=== PATIENT | male | born 1950 | race Caucasian/White ===

== ENCOUNTER 2017-03-16 08:01 | Day surgery (SDC) | payer MEDICARE ==
[~2017-03-16 08:01] MED LIST: ACETAMINOPHEN 1,000 MG/100 ML BTL IV ONE; CEFAZOLIN 2 Gram 2 GM/50 ML BAG IVPB ONE; FAMOTIDINE 20MG TABLET PO ONE; MECLIZINE 25 MG TABLET PO ONE; METOCLOPRAMIDE 10 MG TABLET PO ONE
[2017-03-16] MEDS ORDERED: NALOXONE 0.4 MG/1 ML VIAL IVP ONE (08:02)
[2017-03-16] MEDS ORDERED: METOCLOPRAMIDE HCL 10 MG/2 ML VIAL IVP ONE (08:02)
[2017-03-16] MEDS ORDERED: DEXAMETHASONE 4 MG/ML 1ML VIAL IVP ONE (08:02)
[2017-03-16] MEDS ORDERED: FENTANYL PF 100MCG/2ML VIAL IV ONE (08:02)
[2017-03-16] MEDS ORDERED: HYDROCODONE/APAP 5/325MG TABLET PO ONE (08:02)
[2017-03-16] MEDS ORDERED: HYDROMORPHONE HCL 2 MG/ML VIAL IV ONE (08:02)
[2017-03-16] MEDS ORDERED: NEOSTIGMINE 1 MG/1 ML,10ML VIAL IV ONE (08:02)
[2017-03-16] MEDS ORDERED: MIDAZOLAM HCL 2MG/2ML VIAL IV ONE (08:02)
[2017-03-16] MEDS ORDERED: BUPIVACAINE 0.75% W/EPI MPF 30ML VIAL IVP ONE (08:02)
[2017-03-16] MEDS ORDERED: GLYCOPYRROLATE 0.2 MG/ML ML IV ONE (08:02)
[2017-03-16] MEDS ORDERED: LIDOCAINE 2% MDV (20MG/ML) 20ML VIAL IV ONE (08:02)
[2017-03-16] MEDS ORDERED: ROCURONIUM BROMIDE 50MG/5ML VIAL IV ONE (08:02)
[2017-03-16] MEDS ORDERED: SUCCINYLCHOLINE 20 MG/ML 10ML IVP ONE (08:02)
[2017-03-16] MEDS ORDERED: DESFLURANE 240 ML BTL INH ONE (08:02)
[2017-03-16] MEDS ORDERED: PROPOFOL 10 MG/ML VIAL IV ONE (08:02)
[2017-03-16] MEDS ORDERED: ONDANSETRON HCL IV 4 MG/2 ML VIAL IVP ONE (08:02)
[2017-03-16] MEDS ORDERED: ROPIVACAINE HCL (NAROPIN) /PF 5MG/ML 20ML VIAL IV ONE (08:02)
[2017-03-16 08:11] LABS: BASO % 1.1 % (0-6); EOS % 2.1 % (0-6); GRAN % 64.4 % (47-80); HEMATOCRIT 46.3 % (42.0-52.0); HEMOGLOBIN 15.2 gm/dl (14.0-18.0); LYMPH % 21.3 % (16-45); MEAN CELL VOLUME 90.3 fl (81-97); MEAN CORPUSCULAR HEMOGLOBIN 29.6 pg (27-33); MEAN CORPUSCULAR HGB CONC 32.8 g/dl (32-36); MEAN PLATELET VOLUME 9.3 fl (7.4-10.4); MONO % 11.1 % (0-9); PLATELET COUNT 261 K/uL (130-400); RED BLOOD COUNT 5.13 M/uL (4.40-5.70); RED CELL DISTRIBUTION WIDTH 13.3 % (11.5-14.5); WHITE BLOOD COUNT W/O DIFF 7.1 K/uL (4.2-12.2)
--- NOTE | 2017-03-18 12:50 | Operative Note ---
DATE OF SURGERY: 03/16/2017 Surgeon: Chadwick Mae DO PREOPERATIVE DIAGNOSIS: Right inguinal hernia, direct. POSTOPERATIVE DIAGNOSIS: Right inguinal hernia, direct. OPERATION: Laparoscopic right inguinal herniorrhaphy with mesh using an XL 3D Max mesh. Indication: The patient is a 58-year-old male who presented to the clinic with pain and bulging in his right inguinal region. He did have a fairly sizable hernia on exam. We did discuss repair; risks, benefits, and alternatives. His risks include but are not limited to bleeding, infection, acute or chronic pain, recurrence. He understood this fully. Thereafter, consent was signed, questions answered. PROCEDURE: He was taken to the operating room and placed in a supine position. General anesthesia was administered per the department of anesthesia. The patient's arm was tucked to the side. His abdomen was prepped and draped in a sterile fashion. At this time, adequate timeout was performed. He did receive preoperative antibiotics as well as DVT prophylaxis. At this time, the supraumbilical region was anesthetized with a total of 4 mL of 0.25% Sensorcaine with epinephrine. A 2 cm supraumbilical incision was made. This was carried down to the anterior rectus fascia. This was incised. Blair clamps placed on the fascial edges and brought up into the wound. Stay sutures of 0 Vicryl were placed. The posterior rectus sheath was identified and incised. The peritoneal cavity was entered bluntly. At this time, a 10 mm blunt Will port was placed and adequate pneumoperitoneum was established. Adequate pneumoperitoneum was established. Under direct visualization, additional 5 mm ports were placed on either side of these at the mid clavicular line. The patient was rotated into a steep Trendelenburg position. A 30-degree angled lens was placed. After general exam was done, there was a very large indirect inguinal hernia on the right. Left side appeared normal. At this time, the peritoneum was scored in S-shaped fashion starting on the ASIS to the medial umbilical ligament. A large inferior flap was developed as the loose inguinal tissue was swept away. Care was taken not to injure the vas deferens or other vessels. A large direct hernia sac was then reduced. Symphysis pubis and Yandel's ligament were exposed medially. At this time, an extra large 3D Max mesh was obtained. This was placed carefully in the myopectineal orifice. We had excellent overlap of the direct hernia. Tacks on the back of the rectus on either side of the epigastric vessels and up and above the triangle of pain. Two tacks also went to the level of Yandel's ligament. At this time, the site was reperitonealized with tacking device. The mesh was covered completely. There were no gaps noted. The patient was leveled out. Pneumoperitoneum was released. All ports removed. The fascia was closed with 0 Vicryl in a [id number] fashion. Skin at all 3 ports closed 0 Vicryl. The patient was taken to the recovery room in satisfactory condition. FINDINGS ON SURGERY: Right inguinal hernia, direct, repaired as above. CC: KENNETH Lei
== END 2017-03-16 12:05 | disposition home or self-care (01) ==
LOC: SUR 08:01
PROVIDERS: ATTEND Surgery
DX: K40.90 Unilateral inguinal hernia, without obstruction or gangrene, not specified as recurrent (principal); I10 Essential (primary) hypertension; E78.00 Pure hypercholesterolemia, unspecified; E11.9 Type 2 diabetes mellitus without complications; Z79.84 Long term (current) use of oral hypoglycemic drugs
CPT/HCPCS: 85025; C1781; J0330; J2310; J2405; J2710; J2765; J3490

== ENCOUNTER 2018-03-25 07:13 | Day surgery (SDC) | payer MEDICARE ==
[~2018-03-25 07:13] MED LIST changes: -CEFAZOLIN 2 Gram 2 GM/50 ML BAG IVPB ONE; -FAMOTIDINE 20MG TABLET PO ONE; -MECLIZINE 25 MG TABLET PO ONE; -METOCLOPRAMIDE 10 MG TABLET PO ONE
[2018-03-25] MEDS ORDERED: SEVOFLURANE 250 ML INH ONE (07:14)
[2018-03-25] MEDS ORDERED: DEXAMETHASONE 4 MG/ML 1ML VIAL IVP ONE ×2 (07:14)
[2018-03-25] MEDS ORDERED: PROPOFOL 10 MG/ML VIAL IV ONE (07:14)
[2018-03-25] MEDS ORDERED: EPHEDRINE SULFATE 50 MG/ML ML IV ONE (07:14)
[2018-03-25] MEDS ORDERED: MIDAZOLAM HCL 2MG/2ML VIAL IV ONE (07:14)
[2018-03-25] MEDS ORDERED: PHENYLEPHRINE HCL 10 MG/ML VIAL IVP ONE (07:14)
[2018-03-25] MEDS ORDERED: BUPIVACAINE 0.5% W/EPI MPF 30 ML VIAL IVP ONE (07:14)
[2018-03-25] MEDS ORDERED: ONDANSETRON HCL IV 4 MG/2 ML VIAL IVP ONE (07:14)
[2018-03-25] MEDS ORDERED: LIDOCAINE 2% MDV (20MG/ML) 20ML VIAL IV ONE (07:14)
[2018-03-25] MEDS ORDERED: BUPIVACAINE LIPOSOME/PF 133MG/10ML VIAL IV ONE (07:14)
[2018-03-25] MEDS ORDERED: EPINEPHRINE 1 MG/ML AMPUL SQ ONE (07:14)
--- NOTE | 2018-03-26 11:00 | Operative Note ---
DATE OF SURGERY: 03/25/2018 Surgeon: Mark Ngo DO PREOPERATIVE DIAGNOSES: 1. Tear of the right rotator cuff. 2. Impingement syndrome, right shoulder. 3. Tearing and dislocation, medial dislocation of the biceps tendon. 4. 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 OPERATION: 1. Arthroscopic repair, right rotator cuff. 2. Arthroscopic subacromial decompression and acromioplasty, right shoulder. 3. Arthroscopic tenotomy of the biceps tendon, right shoulder. 4. Arthroscopic chondroplasty of the glenoid, right shoulder. DESCRIPTION OF PROCEDURE: This 67-year-old male was taken to the operating room and placed in the supine position on the operating room table. General anesthesia was induced. He was then placed in the beach chair position with all bony prominences well padded and head well secured. The right shoulder prepped with Hibiclens and draped in the usual sterile fashion. A posterior portal was established in the glenohumeral joint. Initial evaluation of the joint demonstrated a massive tear of the supraspinatus and a portion of the infraspinatus with retraction of the supraspinatus. The biceps tendon was seen to be dislocated and markedly frayed having approximately 10% of the caliber of the tendon still intact. The tendon was then tenotomized and debridement of the interior aspect of the joint was performed. The subscapularis was seen to be mildly frayed. There was a flap of articular cartilage of the anterior-inferior aspect of the glenoid which was detached from the bone, and this was debrided. This area was approximately 1 cm by 0.5 to 0.75 cm. This was then re-probed and confirmed to be stable. I did not demonstrate any significant tearing of the labrum but anteriorly there certainly was fraying of the glenoid labrum. The scope was then placed in the subacromial space, and thorough subacromial decompression and acromioplasty was performed. Debridement of the bursa was also performed to visualize the tear. We tried to mobilize the supraspinatus as much as possible and debrided the old ruptured end and felt that we could mobilize it to the edge of the articular cartilage, and so we did medialize the articular cartilage a few millimeters and then debrided the tuberosity to healthy bleeding bed. We then placed [id number] sutures because this was an L-shaped tear. After the two glzu-yp-lalp stitches had been placed, we did a traditional Speed Bridge technique to try to bring the remaining portion of the tendon down to the tuberosity as much as possible. This was accomplished without difficulty in the usual fashion using four 4.75 SwiveLock sutures with TigerTape and FiberTape, respectively. The repair was felt to be satisfactory. The wound was copiously irrigated and suctioned. The punctures were closed with 4-0 nylon suture and sterile dressings were applied. He was placed in an UltraSling and patient taken to the recovery room in satisfactory condition. GROSS PATHOLOGY: The patient had severe tearing of the rotator cuff as described above. In addition, there were degenerative changes of the glenohumeral joint. The biceps tendon was markedly frayed and dislocated medially. CC: KENNETH Lei
== END 2018-03-25 12:08 | disposition home or self-care (01) ==
LOC: SUR 07:13
PROVIDERS: ATTEND Orthopaedic Surgery
DX: M75.111 Incomplete rotator cuff tear or rupture of right shoulder, not specified as traumatic (principal); S46.211A Strain of muscle, fascia and tendon of other parts of biceps, right arm, initial encounter; M75.41 Impingement syndrome of right shoulder; M94.211 Chondromalacia, right shoulder; I10 Essential (primary) hypertension; E78.00 Pure hypercholesterolemia, unspecified; E11.9 Type 2 diabetes mellitus without complications; Z79.4 Long term (current) use of insulin
CPT/HCPCS: 29827; 29826; 23405; 29828; 01630; 64415; 76942; J2405; C9290; J0171; J2370

== ENCOUNTER 2018-11-09 23:53 | Emergency (ER) | payer MEDICARE ==
[2018-11-10] MEDS ORDERED: 0.9 % SODIUM CHLORIDE 1,000 ML BAG IV ONE (00:21)
[2018-11-10 00:32] LABS: ABSOLUTE NEUTROPHIL COUNT 5.86; BASO % 0.9 % (0-6); EOS % 1.9 % (0-6); GRAN % 66.1 % (47-80); HEMATOCRIT 44.9 % (42.0-52.0); HEMOGLOBIN 14.7 gm/dl (14.0-18.0); LYMPH % 17.8 % (16-45); MEAN CELL VOLUME 91.1 fl (81-97); MEAN CORPUSCULAR HEMOGLOBIN 29.8 pg (27-33); MEAN CORPUSCULAR HGB CONC 32.7 g/dl (32-36); MEAN PLATELET VOLUME 9.8 fl (7.4-10.4); MONO % 13.3 % (0-9); PLATELET COUNT 264 K/uL (130-400); RED BLOOD COUNT 4.93 M/uL (4.40-5.70); RED CELL DISTRIBUTION WIDTH 13.8 % (11.5-14.5); WHITE BLOOD COUNT W/O DIFF 8.9 K/uL (4.2-12.2)
[2018-11-10 00:42] LABS: BLOOD UREA NITROGEN 14 mg/dL (8-23); CREATININE 1.1 mg/dL (0.7-1.2); EST GLOMERULAR FILTRATION RATE > 60 mL/min; TOTAL PROTEIN 7.1 g/dL (6.6-8.7)
[2018-11-10 00:43] LABS: LIPASE 37 U/L (13-60)
[2018-11-10 00:44] LABS: GLUCOSE,RANDOM 154 mg/dL (74-109)
[2018-11-10 00:47] LABS: ALBUMIN 4.4 g/dL (4.0-5.0); ALKALINE PHOSPHATASE 83 U/L (40-129); ALT/SGPT 35 U/L (<41); AST/SGOT 29 U/L (10.0-50.0)
[2018-11-10 00:48] LABS: BILIRUBIN,DIRECT < 0.2 mg/dL (0-0.3)
[2018-11-10 01:05] LABS: URINE APPEARANCE CLEAR; URINE BILIRUBIN NEGATIVE (NEGATIVE); URINE BLOOD NEGATIVE (NEGATIVE); URINE COLOR YELLOW; URINE GLUCOSE (UA) NEGATIVE (NEGATIVE); URINE KETONE NEGATIVE (NEGATIVE); URINE LEUKOCYTE ESTERASE NEGATIVE (NEGATIVE); URINE NITRITE NEGATIVE (NEGATIVE); URINE PROTEIN NEGATIVE (NEGATIVE); URINE UROBILINOGEN 0.2 E.U./dL (0.20 - 1.00)
--- NOTE | 2018-11-10 01:09 | Emergency Department Record ---
History of Present Illness - General Chief Complaint: Abdominal Pain Stated Complaint: UPPER ABDOMINAL PAIN Time Seen by Provider: 11/10/18 00:12 Source: Patient Mode of Arrival: Ambulatory Limitations: No limitations - History of Present Illness Initial Comments: pt has ruq pain that wraps around to flank for 4 hrs. he has never had this before MD Complaint: Abdominal pain Onset/Timin -: Hour(s) Location: R Flank, RUQ Radiation: Back Migration to: No migration Severity: Moderate Severity scale (1-10): 8 Quality: Aching Consistency: Constant Improves With: Nothing Worsens With: Nothing Associated Symptoms: Denies other symptoms - Related Data Allergies Allergy/AdvReac Type Severity Reaction Status Date / Time No Known Drug Allergies Allergy Verified 11/10/18 00:01 Travel Screening - Travel/Exposure Within Last 30 Days Have you traveled within the last 30 days?: No - Travel/Exposure Within Last Year Have you traveled outside the [place] in the last year?: No - Additonal Travel Details Have you been exposed to anyone with a communicable illness?: No - Travel Symptoms Symptom Screening: None Review of Systems Reviewed: No additional complaints except as noted below Constitutional: Reports: As per HPI. Denies: Chills, Fever, Malaise, Night sweats, Weakness, Weight change Eyes: Reports: As per HPI. Denies: Eye discharge, Eye pain, Photophobia, Vision change ENT: Reports: As per HPI. Denies: Congestion, Dental pain, Ear pain, Epistaxis, Hearing loss, Throat pain Respiratory: Reports: As per HPI. Denies: Cough, Dyspnea, Hemoptysis, Stridor, Wheezes Cardiovascular: Reports: As per HPI. Denies: Arrhythmia, Chest pain, Dyspnea on exertion, Edema, Murmurs, Orthopnea, Palpitations, Paroxysmal nocturnal dyspnea, Rheumatic Fever, Syncope Endocrine: Reports: As per HPI. Denies: Fatigue, Heat or cold intolerance, Polydipsia, Polyuria Gastrointestinal: Reports: As per HPI, Abdominal pain. Denies: Constipation, Diarrhea, Hematemesis, Hematochezia, Melena, Nausea, Vomiting Genitourinary: Reports: As per HPI. Denies: Dysuria, Frequency, Hematuria, Incontinence, Retention, Testicular pain, Testicular mass, Urgency Musculoskeletal: Reports: As per HPI. Denies: Arthralgia, Back pain, Gout, Joint swelling, Myalgia, Neck pain Skin: Reports: As per HPI. Denies: Bruising, Change in color, Change in hair/nails, Lesions, Pruritus, Rash Neurological: Reports: As per HPI. Denies: Abnormal gait, Confusion, Headache, Numbness, Paresthesias, Seizure, Tingling, Tremors, Vertigo, Weakness Psychiatric: Reports: As per HPI. Denies: Anxiety, Auditory hallucinations, Depression, Homicidal thoughts, Suicidal thoughts, Visual hallucinations Hematological/Lymphatic: Reports: As per HPI. Denies: Anemia, Blood Clots, Easy bleeding, Easy bruising, Swollen glands Past Medical History - SOCIAL HISTORY Smoking Status: Former smoker Alcohol Use: Rare Drug Use: None - RESPIRATORY Hx Respiratory Disorders: No - CARDIOVASCULAR Hx Cardio Disorders: Yes Hx Hypertension: Yes (well controlled) Comment:: high cholesterol - NEURO Hx Neuro Disorders: No - GI Hx GI Disorders: Yes Hx Reflux: Yes (sometimes R/T foods) Hx of Polyps: Yes - Hx Genitourinary Disorders: No - ENDOCRINE Hx Endocrine Disorders: Yes Hx Diabetes: Yes (Type II Dx'd 2-3 yrs ago) Comment:: checks blood sugars 85-120 A1C 6.1 - MUSCULOSKELETAL Hx Musculoskeletal Disorders: Yes Hx Arthritis: Yes Comment:: right shoulder pain - PSYCH Hx Psych Problems: No - HEMATOLOGY/ONCOLOGY Hx Hematology/Oncology Disorders: No Family Medical History Any Significant Family History?: Yes Hx Cancer: Father *Cancer Comment: skin cancer Physical Exam - General General Appearance: Alert, Oriented x3, Cooperative, Mild distress - Head Head exam: Normal inspection - Eye Eye exam: Normal appearance, PERRL, EOMI Pupils: Normal accommodation - ENT ENT exam: Normal exam, Mucous membranes moist, Normal external ear exam, Normal orophraynx Ear exam: Normal external inspection. negative: External canal tenderness Nasal Exam: Normal inspection. negative: Discharge, Sinus tenderness Mouth exam: Normal external inspection, Tongue normal Teeth exam: Normal inspection. negative: Dental caries Throat exam: Normal inspection. negative: Tonsillar erythema, Tonsillar exudate - Neck Neck exam: Normal inspection, Full ROM. negative: Tenderness - Respiratory Respiratory exam: Normal lung sounds bilaterally. negative: Respiratory distress - Cardiovascular Cardiovascular Exam: Regular rate, Normal rhythm, Normal heart sounds - GI/Abdominal GI/Abdominal exam: Soft, Normal bowel sounds, Tenderness - Rectal Rectal exam: Deferred - exam: Deferred - Extremities Extremities exam: Normal inspection, Full ROM, Normal capillary refill. negative: Tenderness - Back Back exam: Reports: Normal inspection, Full ROM. Denies: Muscle spasm, Rash noted, Tenderness - Neurological Neurological exam: Alert, CN II-XII intact, Normal gait, Oriented X3 - Psychiatric Psychiatric exam: Normal affect, Normal mood - Skin Skin exam: Dry, Intact, Normal color, Warm Course Vital Signs 11/09/18 23:56 Temperature 97.6 F Pulse Rate 92 H Respiratory 18 Rate Blood Pressure 158/107 Pulse Ox 99 - Reevaluation(s) Reevaluation #1: 11/10/18 02:55 ct shows cholelithiasis. pt feels better and wants to f/u with dr mae Medical Decision Making - Lab Data Result diagrams: 11/10/18 00:25 11/10/18 00:25 Lab Results 11/10/18 11/10/18 Range/Units 00:25 00:25 WBC 8.9 (4.2-12.2) K/uL RBC 4.93 (4.40-5.70) M/uL Hgb 14.7 (14.0-18.0) gm/dl Hct 44.9 (42.0-52.0) % MCV 91.1 (81-97) fl MCH 29.8 (27-33) pg MCHC 32.7 (32-36) g/dl RDW 13.8 (11.5-14.5) % Plt Count 264 (130-400) K/uL MPV 9.8 (7.4-10.4) fl Gran % 66.1 (47-80) % Lymphocytes % 17.8 (16-45) % Monocytes % 13.3 H (0-9) % Eosinophils % 1.9 (0-6) % Basophils % 0.9 (0-6) % Absolute Neutrophils 5.86 Sodium 145 (136-145) mmol/L Potassium 4.4 (3.4-4.5) mmol/L Chloride 108 H (98-107) mmol/L Carbon Dioxide 26.0 (22-29) mmol/L Anion Gap 11.0 (7-16) BUN 14 (8-23) mg/dL Creatinine 1.1 (0.7-1.2) mg/dL Estimated GFR > 60 mL/min Random Glucose 154 H (74-109) mg/dL Calcium 9.5 (8.8-10.2) mg/dL Total Bilirubin 0.30 (0.2-1.0) mg/dL Direct Bilirubin < 0.2 (0-0.3) mg/dL AST 29 (10.0-50.0) U/L ALT 35 (<41) U/L Alkaline Phosphatase 83 (40-129) U/L Total Protein 7.1 (6.6-8.7) g/dL Albumin 4.4 (4.0-5.0) g/dL Lipase 37 (13-60) U/L Disposition Disposition: Discharge Clinical Impression: Cholelithiasis Qualifiers: Cholelithiasis location: gallbladder and bile duct Cholecystitis presence: without cholecystitis Biliary obstruction: with biliary obstruction Qualified Code(s): K80.71 - Calculus of gallbladder and bile duct without cholecystitis with obstruction Disposition: Home, Self-Care Condition: (1) Good Instructions: Biliary Colic (ED), Gallstones (ED) Additional Instructions: follow up with dr mae. return sooner if worse. low fat diet Referrals: Chadwick Mae [DOCTOR OF OSTEOPATH] - [facility] [Provider Group] Quality - Quality Measures Quality Measures: N/A - Blood Pressure Screening Does Patient Have Any of the Following: No Blood Pressure Classification: Hypertensive Reading Systolic Measurement: 158 Diastolic Measurement: 107 Screening for High Blood Pressure: < First Hypertensive BP, F/U Documented > [G8950] First Hypertensive Follow-up Interventions: Follow-up with rescreen GT 1 day and LT 4 weeks.
[2018-11-10] MEDS ORDERED: KETOROLAC 30 MG/ML VIAL IVP ONE (01:33)
[2018-11-10] MEDS ORDERED: ONDANSETRON HCL IV 4 MG/2 ML VIAL IVP ONE (02:06)
[2018-11-10] MEDS ORDERED: HYDROMORPHONE HCL 2 MG/ML VIAL IVP ONE (02:06)
--- NOTE | 2018-11-11 05:40 | CT SCAN REPORT ---
EXAM: CT SCAN ABDOMEN/PELVIS WO CONTRAST HISTORY: RIGHT FLANK PAIN. TECHNIQUE: Standard CT imaging of the abdomen and pelvis without contrast. COMPARISON: None. FINDINGS: The lung bases are clear. The liver is unremarkable. The gallbladder is contracted. There are a few small calcified gallstones. No pericholecystic edema. The pancreas, spleen, and adrenal glands are unremarkable. There is a 1 mm calculus in the right kidney, best seen on coronal images. No hydronephrosis or calcification along the course of the ureters. There is a small cyst in the right kidney. The stomach is distended with fluid. There are multiple mildly dilated loops of small bowel in the left abdomen with the more distal dilated loops fecalized with a points of narrowing in the left mid mesentery with the distal small bowel decompressed. These findings are consistent with a small bowel obstruction. There is colonic diverticulosis without evidence for diverticulitis. There is mild stool throughout the colon. The appendix is normal. The bladder is unremarkable. No retroperitoneal or mesenteric adenopathy. No free fluid or free air in the abdomen. No abdominal aortic aneurysm. 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 Multilevel degenerative changes in the lumbar spine. IMPRESSION: 1. FINDINGS SUGGESTING SMALL BOWEL OBSTRUCTION IN THE LEFT MID MESENTERY, WHICH MAY BE PARTIAL OR COMPLETE. CLOSE CLINICAL FOLLOW-UP IS SUGGESTED. 2. COLONIC DIVERTICULOSIS. 3. RIGHT NEPHROLITHIASIS WITHOUT EVIDENCE FOR OBSTRUCTIVE UROPATHY. 4. CHOLELITHIASIS. JOB NUMBER: [id number] MTDD
== END 2018-11-10 03:07 | disposition home or self-care (01) ==
LOC: ER 23:53
DX: K80.71 Calculus of gallbladder and bile duct without cholecystitis with obstruction (principal); I10 Essential (primary) hypertension; E11.9 Type 2 diabetes mellitus without complications; Z87.891 Personal history of nicotine dependence
CPT/HCPCS: 99284 ×2; 96374; 96375; 83690; 85025; 80076; 80048; 81003; 74176; J1885; J2405; J1170; J7030

== ENCOUNTER 2018-11-10 14:10 | Emergency (ER) | payer MEDICARE ==
[2018-11-10] MEDS ORDERED: 0.9 % SODIUM CHLORIDE 1000ML 1,000 ML IV ONE ×2 (14:15→16:28)
[2018-11-10] MEDS ORDERED: ACETAMINOPHEN 1,000 MG/100 ML BTL IVPB ONE (14:18)
[2018-11-10] MEDS ORDERED: ONDANSETRON HCL IV 4 MG/2 ML VIAL IVP ONE (14:18)
[2018-11-10] MEDS ORDERED: HYDROMORPHONE HCL 2 MG/ML VIAL IVP ONE (14:18)
--- NOTE | 2018-11-10 14:22 | Emergency Department Record ---
History of Present Illness - General Chief Complaint: Abdominal Pain Stated Complaint: GALL STONE PAIN/DISCOMFORT, VOMITING Time Seen by Provider: 11/10/18 14:15 Source: Patient Mode of Arrival: Ambulatory Limitations: No limitations - History of Present Illness Initial Comments: 68 yo male presents with recurrent right upper quadrant pain. The patient developed pain last night initially. He states he was seen in the ED and diagnosed on CT scan to have gall stones. He was feeling better but the pain has not completely resolved since then. He was discharged home with follow up on Thursday with Dr Mae. The pain and nausea returned this afternoon with nausea and vomiting. No fever. No rash. No hematuria. The pain remains only in the RUQ. He had a normal bowel movement this afternoon. He has had prior hernia surgery. MD Complaint: Abdominal pain -: Hour(s) Location: RUQ Radiation: RUQ Migration to: RUQ Severity: Moderate Quality: Aching, Sharp Consistency: Constant Improves With: Nothing Worsens With: Eating Context: Other Associated Symptoms: Anorexia, Vomiting - Related Data Allergies Allergy/AdvReac Type Severity Reaction Status Date / Time No Known Drug Allergies Allergy Verified 11/10/18 00:01 Review of Systems Constitutional: Denies: Chills, Fever, Malaise, Weakness Eyes: Denies: Eye discharge ENT: Denies: Congestion, Throat pain Respiratory: Denies: Cough, Dyspnea Cardiovascular: Denies: Chest pain, Palpitations, Syncope Endocrine: Denies: Fatigue, Polydipsia, Polyuria Gastrointestinal: Reports: As per HPI, Abdominal pain, Nausea, Vomiting. Denies: Diarrhea Genitourinary: Denies: Dysuria, Frequency, Hematuria Musculoskeletal: Denies: Arthralgia, Back pain, Myalgia Skin: Denies: Bruising, Change in color, Rash Neurological: Denies: Headache Psychiatric: Denies: Anxiety Hematological/Lymphatic: Denies: Easy bleeding, Easy bruising Past Medical History - SOCIAL HISTORY Smoking Status: Former smoker Drug Use: None - RESPIRATORY Hx Respiratory Disorders: No - CARDIOVASCULAR Hx Cardio Disorders: Yes Hx Hypertension: Yes (well controlled) Comment:: high cholesterol - NEURO Hx Neuro Disorders: No - GI Hx GI Disorders: Yes Hx Reflux: Yes (sometimes R/T foods) Hx of Polyps: Yes - Hx Genitourinary Disorders: No - ENDOCRINE Hx Endocrine Disorders: Yes Hx Diabetes: Yes (Type II Dx'd 2-3 yrs ago) Comment:: checks blood sugars 85-120 A1C 6.1 - MUSCULOSKELETAL Hx Musculoskeletal Disorders: Yes Hx Arthritis: Yes Comment:: right shoulder pain - PSYCH Hx Psych Problems: No - HEMATOLOGY/ONCOLOGY Hx Hematology/Oncology Disorders: No Family Medical History Hx Cancer: Father *Cancer Comment: skin cancer Physical Exam - General General Appearance: Alert, Oriented x3, Cooperative, No acute distress Limitations: No limitations - Head Head exam: Atraumatic, Normal inspection - Eye Eye exam: Normal appearance, PERRL. negative: Conjunctival injection, Scleral icterus - ENT ENT exam: Normal exam Ear exam: Normal external inspection Nasal Exam: Normal inspection Mouth exam: Normal external inspection - Neck Neck exam: Normal inspection, Full ROM. negative: Lymphadenopathy, Tenderness - Respiratory Respiratory exam: Normal lung sounds bilaterally. negative: Respiratory distress, Rhonchi, Stridor, Wheezes - Cardiovascular Cardiovascular Exam: Regular rate, Normal rhythm, Normal heart sounds Peripheral Pulses: 2+: Radial (R), Radial (L) - GI/Abdominal GI/Abdominal exam: Soft, Tenderness (Tender RUQ otherwise very soft abdomen). negative: Distended, Rebound, Rigid - Rectal Rectal exam: Deferred - exam: Deferred - Extremities Extremities exam: Normal inspection - Back Back exam: Denies: CVA tenderness (R), CVA tenderness (L) - Neurological Neurological exam: Alert, Oriented X3 - Psychiatric Psychiatric exam: Normal affect, Normal mood. negative: Agitated, Anxious - Skin Skin exam: Dry, Intact, Normal color, Warm Course - Reevaluation(s) Reevaluation #1: 11/10/18 14:25 EMR reviewed from last night ED visit CT demonstrated possible developing SBO with contracted gall bladder 11/10/18 14:44 The CBC was reviewed WBC is 19 11/10/18 14:55 The CMP and Lipase were reviewed No acute process 11/10/18 16:09 Recheck: the pain is now well controlled The XR demonstrated some small bowel distension not ruling out a component of obstruction US preliminary demonstrates no stones or sludge (stone are seen on the CT and XR), wall is .2 and CBD is 0.6 11/10/18 16:30 The case was discussed with Dr Mae He will accept the patient [place] [facility] [place] Decision Making - Lab Data Result diagrams: 11/10/18 14:15 11/10/18 14:15 Disposition Disposition: Transfer Clinical Impression: Right upper quadrant pain, Gall stones, Partial small bowel obstruction Disposition: Acute Care Hospital [place] [facility] [place] For Transfer: Gall stone, abdominal pain Accepting Physician: Carmelita Time Discussed w/Accepting Physician: 16:30 Condition: (2) Stable Forms: Patient Portal Access Time of Disposition: 16:30 Quality - Quality Measures Quality Measures: N/A - Blood Pressure Screening Does Patient Have Any of the Following: No Blood Pressure Classification: Normal BP Reading Systolic Measurement: 103 Diastolic Measurement: 66 Screening for High Blood Pressure: < Normal BP, F/U Not Required > [G8783]
[2018-11-10 14:37] LABS: ABSOLUTE NEUTROPHIL COUNT 16.05; HEMATOCRIT 47.7 % (42.0-52.0); HEMOGLOBIN 15.5 gm/dl (14.0-18.0); MEAN CELL VOLUME 91.2 fl (81-97); MEAN CORPUSCULAR HEMOGLOBIN 29.6 pg (27-33); MEAN CORPUSCULAR HGB CONC 32.5 g/dl (32-36); MEAN PLATELET VOLUME 9.3 fl (7.4-10.4); PLATELET COUNT 274 K/uL (130-400); RED BLOOD COUNT 5.23 M/uL (4.40-5.70); RED CELL DISTRIBUTION WIDTH 13.9 % (11.5-14.5); WHITE BLOOD COUNT W/O DIFF 19.2 K/uL (4.2-12.2)
[2018-11-10 14:46] LABS: BLOOD UREA NITROGEN 17 mg/dL (8-23)
[2018-11-10 14:47] LABS: CREATININE 1.1 mg/dL (0.7-1.2); EST GLOMERULAR FILTRATION RATE > 60 mL/min; LIPASE 51 U/L (13-60); TOTAL PROTEIN 7.6 g/dL (6.6-8.7)
[2018-11-10 14:49] LABS: GLUCOSE,RANDOM 184 mg/dL (74-109)
[2018-11-10 14:51] LABS: ALT/SGPT 33 U/L (<41); AST/SGOT 25 U/L (10.0-50.0)
[2018-11-10 14:52] LABS: ALB/GLOB RATIO 1.7 (1.1-1.8); ALBUMIN 4.8 g/dL (4.0-5.0); ALKALINE PHOSPHATASE 92 U/L (40-129)
[2018-11-10] MEDS ORDERED: ERTAPENEM SODIUM 1 G in 0.9 % SODIUM CHLORIDE 100ML 100 ML IVPB ONE (16:28)
--- NOTE | 2018-11-11 09:38 | RADIOLOGY REPORT ---
EXAM: KUB HISTORY: UPPER ABDOMINAL PAIN, POSSIBLE SMALL BOWEL OBSTRUCTION. TECHNIQUE: AP supine views of the upper and lower abdomen were obtained. Comparison: No prior abdomen x-ray series with which to compare. Comparison is made with the noncontrast CT abdomen and pelvis from earlier today on 11/10/18. FINDINGS: The bowel gas pattern is nonspecific. Air is seen scattered throughout the colon, but probably with some mild small bowel distention in the mid abdomen measuring up to about 4.8 cm in diameter. Findings could represent incomplete or low grade small bowel obstruction. Small calcification right upper quadrant probably corresponds to the cholelithiasis evident n the CT scan. Mild thoracic curve to the right with prominent spurring in the thoracic and lumbar spine. Relative elevation of the right hemidiaphragm also present on the CT. Some apparent fluid distention of the stomach extending transversely across the abdomen corresponding to that seen on the CT. IMPRESSION: 1. NONSPECIFIC BOWEL GAS PATTERN WITH SOME SMALL BOWEL DISTENTION SUGGESTING A COMPONENT OF SMALL BOWEL OBSTRUCTION, PERHAPS INCOMPLETE. 2. CALCIFICATION RIGHT UPPER QUADRANT PROBABLY CORRESPONDING TO THE CHOLELITHIASIS EVIDENT ON THE RECENT CT EARLIER TODAY. 3. PROMINENT SPURRING IN THE SPINE. JOB NUMBER: [id number] [facility]
--- NOTE | 2018-11-11 09:51 | ULTRASOUND REPORT ---
EXAM: LIMITED RIGHT UPPER QUADRANT ABDOMEN ULTRASOUND HISTORY: RIGHT UPPER QUADRANT ABDOMINAL PAIN. TECHNIQUE: Limited right upper quadrant abdomen ultrasound was performed. Comparison: No prior ultrasound. Comparison is made with the abdomen CT from earlier today on 11/10/18. Report of the prior study is not as yet available in PACS. FINDINGS: The pancreas was consistently obscured by overlying bowel content and not adequately visualized sonographically. The left lobe of the liver was also obscured by overlying bowel content. The right kidney was identified measuring 11.4 cm in length with no hydronephrosis evident, but there was a small cyst laterally in the right kidney measuring about 1.7 cm in size which corresponds to a small exophytic mass in the right kidney on the CT as well. The visualized right lobe of the liver has a somewhat coarsened echogenicity which may represent some diffuse fatty infiltration or other diffuse hepatic parenchymal disease. No definite focal hepatic mass identified within the right lobe and no intrahepatic biliary dilatation seen. The common duct was seen and was of normal caliber. The gallbladder appears somewhat distended. On the CT there did appear to be one or two gallstones in the region of the gallbladder neck. These are not clearly identified on the ultrasound. The prospecting observer indicates a negative sonographic Bassett's sign. The stomach is probably somewhat fluid distended in the left upper quadrant of the abdomen. IMPRESSION: 1. THE PANCREAS IS OBSCURED BY OVERLYING BOWEL CONTENT, IS THE LEFT LOBE OF THE LIVER. 2. COARSENED ECHOGENICITY OF THE RIGHT LOBE OF THE LIVER WITH NO FOCAL HEPATIC MASS EVIDENT. 3. NO BILIARY DILATATION SEEN. 4. NO HYDRONEPHROSIS RIGHT KIDNEY WITH A SMALL RIGHT RENAL CYST. 5. DISTENDED GALLBLADDER. NO DEFINITE GALLSTONES SEEN SONOGRAPHICALLY ALTHOUGH THERE DID APPEAR TO BE ONE OR TWO SMALL GALLSTONES NEAR THE GALLBLADDER NECK ON THE CT FROM EARLIER TODAY. JOB NUMBER: [id number] AND [id number] [facility]
== END 2018-11-10 18:52 | disposition short-term general hospital (02) ==
LOC: ER 14:10
DX: K56.690 Other partial intestinal obstruction (principal); K80.80 Other cholelithiasis without obstruction; R11.2 Nausea with vomiting, unspecified; I10 Essential (primary) hypertension; E11.9 Type 2 diabetes mellitus without complications
CPT/HCPCS: 99285 ×2; 96365; 96366; 96375; 96361; 83690; 80053; 85027; 74018; 76705; J1335; J2405; J1170; J7030